=== PATIENT | male | born 1945 | race Caucasian/White ===

== ENCOUNTER → 2020-07-13 | Outpatient (CLI) | payer MEDICARE ==
[~2020-07-13] MED LIST: VISIPAQUE 320 MG/ML, 150ML BOTTLE ONE
== END | disposition home or self-care (01) ==
LOC: RAD 09:56
PROVIDERS: ATTEND Internal Medicine Cardiovascular Disease
DX: I35.8 Other nonrheumatic aortic valve disorders (principal); I10 Essential (primary) hypertension; E78.5 Hyperlipidemia, unspecified; I25.10 Atherosclerotic heart disease of native coronary artery without angina pectoris; E04.1 Nontoxic single thyroid nodule; M25.78 Osteophyte, vertebrae; M51.36 Other intervertebral disc degeneration, lumbar region; M47.816 Spondylosis without myelopathy or radiculopathy, lumbar region
CPT/HCPCS: 71275; 74174; 93880; Q9967

== ENCOUNTER 2020-08-08 08:01 | Inpatient (IN) | payer MEDICARE ==
[~2020-08-08] VITALS: Ht 172.7 cm; Wt 91.6 kg
[2020-08-08] MEDS ORDERED: SODIUM CHLORIDE 0.9% 1,000 ML IV ONE (08:30)
[2020-08-08] MEDS ORDERED: ONDANSETRON 2MG/ML, 2ML IV PRN (08:30)
[2020-08-08] MEDS ORDERED: ALBU8.5H8 INH (08:35)
[2020-08-08] MEDS ORDERED: METF500T17 PO (08:40)
[2020-08-08] MEDS ORDERED: ASPI81TA45 PO (08:40)
[2020-08-08] MEDS ORDERED: AMLO-150 PO (08:40)
[2020-08-08] MEDS ORDERED: TRAZ50TA66 PO (08:40)
[2020-08-08] MEDS ORDERED: RAMI10CA59 PO (08:40)
[2020-08-08] MEDS ORDERED: OMEP40CA8 PO (08:40)
[2020-08-08] MEDS ORDERED: METO25TA91 PO (08:40)
[2020-08-08] MEDS ORDERED: LEVO100T5 PO (08:40)
[2020-08-08] MEDS ORDERED: MULT-132 PO (08:40)
[2020-08-08] MEDS ORDERED: ROSU20TA2 PO (08:40)
[2020-08-08] MEDS ORDERED: L.AC1CAP6 PO (08:41)
[2020-08-08] MEDS ORDERED: MAGN400T36 PO (08:44)
[2020-08-08] MEDS ORDERED: VITA400C43 PO (08:44)
[2020-08-08] MEDS ORDERED: Tylenol PM PO (08:44)
[2020-08-08] MEDS ORDERED: CHOL10003 PO (08:44)
[2020-08-08 08:46] VITALS: BP 152/88
[2020-08-08] MEDS ORDERED: PLEASE ENTER HEIGHT AND WEIGHT MC SCH (09:00)
[2020-08-08 09:03] LABS: BASOPHILS % (AUTO) 1 % (0-1); EOSINOPHILS % (AUTO) 5 % (1-7); LYMPHOCYTES % (AUTO) 20 % (22-44); MEAN CORPUSCULAR HEMOGLOBIN 32.1 pg (27.5-34.5); MEAN CORPUSCULAR HGB CONC 34.4 g/dL (33.2-36.2); MEAN PLATELET VOLUME 8.4 fL (7.4-10.4); MONOCYTES % (AUTO) 7 % (2-9); NEUTROPHILS % (AUTO) 68 % (42-75); PLATELET COUNT 234 x10^3/uL (130-400); RED CELL DISTRIBUTION WIDTH 14.2 % (9.4-14.8)
[2020-08-08 09:15] LABS: ALANINE AMINOTRANSFERASE 29 U/L (12-78); ALKALINE PHOSPHATASE 55 U/L (45-117); BILIRUBIN,TOTAL 0.6 mg/dL (0.2-1.0); CREATININE 0.75 mg/dL (0.7-1.3); TOTAL PROTEIN 7.1 g/dL (6.4-8.2)
[2020-08-08 09:22] LABS: INTERNATIONAL NORMALIZED RATIO 1.02 (0.93-1.1); PROTHROMBIN TIME 10.9 Seconds (9.6-11.5)
[2020-08-08 09:35] LABS: ALBUMIN 3.6 g/dL (3.4-5.0); ANION GAP 6 mmol/L (5-15); CALCIUM 9.1 mg/dL (8.5-10.1); CHLORIDE 105 mmol/L (98-107)
[2020-08-08] MEDS ORDERED: FENTANYL PF 250 MCG/5ML ONE (10:41)
[2020-08-08] MEDS ORDERED: HEPARIN 1,000 UNITS/ML, 10ML ONE ×2 (11:47)
[2020-08-08] MEDS ORDERED: CEFAZOLIN 1,000 MG ONE ×2 (11:47→11:55)
[2020-08-08] MEDS ORDERED: ONDANSETRON 2MG/ML, 2ML ONE ×2 (11:47→11:55)
[2020-08-08] MEDS ORDERED: PROPOFOL 10 MG/ML, 20ML ONE (11:47)
[2020-08-08] MEDS ORDERED: SUCCINYLCHOLINE 20 MG/ML, 10ML ONE (11:47)
[2020-08-08] MEDS ORDERED: PROTAMINE SULFATE 10 MG/ML, 5ML ONE ×2 (12:11→12:21)
[2020-08-08] MEDS ORDERED: ACETAMINOPHEN 325 MG TABLET PO PRN (13:00)
[2020-08-08] MEDS ORDERED: LABETALOL 20 MG/4 ML IVPush PRN (13:00)
[2020-08-08] MEDS: AMLODIPINE 5 MG TABLET PO SCH (13:00)
[2020-08-08] MEDS ORDERED: HYDROcodone/APAP 5/325 TABLET PO PRN (13:00)
[2020-08-08] MEDS ORDERED: hydrALAzine 20 MG/ML, 1ML IVPush PRN (13:00)
[2020-08-08] MEDS ORDERED: TRAZODONE 50MG TABLET PO PRN (13:00)
[2020-08-08 16:15] VITALS: BP 134/75
[2020-08-08] MEDS: ALBUTEROL HFA 90 MCG/SPRAY INH SCH ×2 (16:49→21:00)
[2020-08-08 18:17] VITALS: BP 149/83
[2020-08-08] MEDS ORDERED: METOPROLOL SUCCINATE 25 MG TAB.ER.24H PO SCH (21:00)
[2020-08-08] MEDS ORDERED: RAMIPRIL 5 MG CAP PO SCH (21:00)
[2020-08-08] MEDS: metFORMIN 500 MG TABLET PO SCH (21:00)
[2020-08-08] MEDS ORDERED: ATORVASTATIN 40 MG TABLET PO SCH (21:00)
[2020-08-09 01:34] VITALS: BP 145/75
[2020-08-09 04:49] LABS: BASOPHILS % (AUTO) 0 % (0-1); EOSINOPHILS % (AUTO) 1 % (1-7); LYMPHOCYTES % (AUTO) 13 % (22-44); MEAN CORPUSCULAR HEMOGLOBIN 31.7 pg (27.5-34.5); MEAN CORPUSCULAR HGB CONC 33.4 g/dL (33.2-36.2); MEAN PLATELET VOLUME 8.4 fL (7.4-10.4); MONOCYTES % (AUTO) 7 % (2-9); NEUTROPHILS % (AUTO) 78 % (42-75); PLATELET COUNT 144 x10^3/uL (130-400); RED CELL DISTRIBUTION WIDTH 14.4 % (9.4-14.8)
[2020-08-09 04:56] LABS: ANION GAP 8 mmol/L (5-15); CALCIUM 8.6 mg/dL (8.5-10.1); CHLORIDE 106 mmol/L (98-107); CREATININE 0.62 mg/dL (0.7-1.3)
[2020-08-09] MEDS ORDERED: LEVOTHYROXINE 100 MCG TABLET PO SCH (06:00)
[2020-08-09] MEDS: ALBUTEROL HFA 90 MCG/SPRAY INH SCH (06:00)
[2020-08-09 06:25] VITALS: BP 149/71
[2020-08-09] MEDS ORDERED: OMEPRAZOLE 20 MG CAPSULE.DR PO SCH (07:00)
[2020-08-09] MEDS: AMLODIPINE 5 MG TABLET PO SCH (08:31)
[2020-08-09] MEDS: metFORMIN 500 MG TABLET PO SCH (08:31)
[2020-08-09] MEDS ORDERED: ASPIRIN 81 MG TABLET EC PO SCH (09:00)
[2020-08-09] MEDS ORDERED: CHOLECALCIFEROL 5,000u TAB PO SCH (09:00)
[2020-08-09] MEDS ORDERED: METOPROLOL SUCCINATE 25 MG TAB.ER.24H PO SCH (09:00)
== END 2020-08-09 11:21 | disposition home or self-care (01) | DRG 266 ==
LOC: ORIP 08:01 → 5SO 15:08 → DCLOUNGE 08-09 10:57
PROVIDERS: ADMIT Internal Medicine Cardiovascular Disease; ATTEND Internal Medicine Cardiovascular Disease
PROC: B24BZZ4 Ultrasonography of Heart with Aorta, Transesophageal (ICD-10-PCS; 2020-08-08)
PROC: B3101ZZ Fluoroscopy of Thoracic Aorta using Low Osmolar Contrast (ICD-10-PCS; 2020-08-08)
PROC: 02RF38Z Replacement of Aortic Valve with Zooplastic Tissue, Percutaneous Approach (ICD-10-PCS; principal; 2020-08-08 11:00)
DX: I35.0 Nonrheumatic aortic (valve) stenosis (principal); Z00.6 Encounter for examination for normal comparison and control in clinical research program; I50.33 Acute on chronic diastolic (congestive) heart failure; Z20.822 Contact with and (suspected) exposure to COVID-19; Z88.8 Allergy status to other drugs, medicaments and biological substances; I25.10 Atherosclerotic heart disease of native coronary artery without angina pectoris; E78.5 Hyperlipidemia, unspecified; I11.0 Hypertensive heart disease with heart failure
CPT/HCPCS: 33361; 36415; 76937; 80048; 80053; 85014; 85018; 85025; 85610; 86850; 86900; 86923; 87635; 93005; 93306; 93312; 93321; 93325; 93355; C1760; C1769; C1894; G0378; J0690; J1644; J2405; J2704; J2720; J3010; J0330; Q9967

== ENCOUNTER → 2020-09-19 | Outpatient (CLI) | payer MEDICARE ==
[~2020-09-19] MED LIST changes: +ALBU8.5H8 INH; +AMLO-150 PO; +ASPI81TA45 PO; +CHOL10003 PO; +L.AC1CAP6 PO; +LEVO100T5 PO; +MAGN400T36 PO; +METF500T17 PO; +METO25TA91 PO; +MULT-132 PO; +OMEP40CA8 PO; +RAMI10CA59 PO; +ROSU20TA2 PO; +TRAZ50TA66 PO; +Tylenol PM PO; -VISIPAQUE 320 MG/ML, 150ML BOTTLE ONE; +VITA400C43 PO
== END | disposition home or self-care (01) ==
LOC: CFH 09:45
PROVIDERS: ATTEND Internal Medicine Cardiovascular Disease
DX: Z01.810 Encounter for preprocedural cardiovascular examination (principal); I08.8 Other rheumatic multiple valve diseases; R06.02 Shortness of breath; I65.29 Occlusion and stenosis of unspecified carotid artery
CPT/HCPCS: 93306; 93356